=== PATIENT | female | born 1935 | race Caucasian/White ===

== ENCOUNTER 2020-07-30 18:09 | Inpatient (IN) | payer OTHER ==
[~2020-07-30] VITALS: Ht 175.3 cm; Wt 67.6 kg
--- NOTE | ~2020-07-30 | EMS ---
[facility] [address] [place] [address] EMS Patient Care Report Name: FIDELIA SANTA Room #: 170-12 ADM IN M.R.#: [id number] Admission: 07/30/20 Attend Phys: Adwoa Faust Discharge: Date of : 35 Report #: [id number] THIS REPORT FOR: //name// Report Transmitted: 07/30/2020 20:[address] [facility] Incident [id number] @ 07/30/2020 17:20 Incident [address] [place] [address] Patient FIDELIA SANTA Female, 85 Years 1935 Patient Address [address] [place] [address] Patient History None Reported, Patient Allergies Penicillin allergy,Erythromycin,Sulfa, Patient Medications None Reported, Chief Complaint Nausea and Vomiting Disposition Transported No Lights/[place] Dis[place] Reason Sick Person Transported To [facility] Narrative Dispatched to a residence on a C-1 Sick Patient. Upon arrival we find the patient sitting on the toilet in her home in care of her son. The patient reports that she has had nausea and vomiting for the last [facility] [address] [place] [address] EMS Patient Care Report Name: FIDELIA SANTA Room #: 170-12 ADM IN MDesmond.#: [id number] Admission: 07/30/20 Attend Phys: Adwoa Faust Discharge: Date of : 35 Report #: [id number] 2 days. She states that yesterday she was having diarrhea as well. The patient denies having a fever at anytime that she is aware. There has been nothing out of the ordinary with the quality or color of her diarrhea or emesis. She has no other complaints at this time. The patient denies any significant medical hx. Vitals Assessed, PMH, Physical Exam, the patient is assisted to the cot and moved to the ambulance, EKG monitoring, IV Access, NaCl Blolus, Zofran Administration. The patient's condition remains unchanged and her vital signs remain stable during transport. Initial Vitals @17:38P: 65,SpO2: 100,FL Suspected: false @17:30P: 73,R: 16,BP: 115/68,Pain: 0/10,GCS: 15,Temp: 97.8F,SpO2: 97,Revised Trauma: 12, @18:00P: 76,R: 16,BP: 125/64,GCS: 15,SpO2: 99,Revised Trauma: 12, @17:52P: 76,R: 16,BP: 150/74,GCS: 15,SpO2: 100,Revised Trauma: 12, Assessments @17:28MENTAL:Person Oriented,Time Oriented,Place Oriented,Event Oriented,SKIN:HEENT:Head/Face: No Abnormalities,Neck/Airway: No Abnormalities,LUNG SOUNDS:General: Nausea,General: Vomiting,ABDOMEN:General: Nausea,General: Vomiting,PELVIS//GI:EXTREMITIES:Left Arm: No Abnormalities,Right Arm: No Abnormalities,Left Leg: No Abnormalities,Right Leg: No Abnormalities,PULSE:NEURO:No Abnormalities, Impression Nausea Procedures @17:45Normal Saline (.9% NaCl) 400cc (22 ga) Site: Hand-LeftResponse: UnchangedSucceeded@17:47Ondansetron - 4 Milligrams (mg) - Intravenous (IV)Response: Unchanged@17:50Surgical Mask on PatientResponse: Unchanged Timeline 17:19,Call Received 17:19,Psap Call 17:20,Dispatched 17:21,En Route 17:26,On Scene 17:28,At Patient 17:30,BP: 115/68 M,PULSE: 73,RR: 16 R,SPO2: 97 Ox,ETCO2: ,BG: ,PAIN: 0,GCS: 15, 17:38,BP: / M,PULSE: 65,RR: R,SPO2: 100 Ox,ETCO2: ,BG: ,PAIN: ,GCS: , 17:45,Normal Saline (.9% NaCl) 400cc 22 ga Site: Hand-Left,Response: [facility] [address] [place] [address] EMS Patient Care Report Name: FIDELIA SANTA Room #: 170-12 ADM IN M.R.#: [id number] Admission: 07/30/20 Attend Phys: Adwoa Faust Discharge: Date of : 35 Report #: [id number] UnchangedSucceeded, 17:47,Ondansetron - 4 Milligrams (mg) - Intravenous (IV),Response: Unchanged 17:47,Depart Scene 17:50,Surgical Mask on Patient,Response: Unchanged 17:52,BP: 150/74 M,PULSE: 76,RR: 16 R,SPO2: 100 Ox,ETCO2: ,BG: ,PAIN: ,GCS: 15, 18:00,BP: 125/64 M,PULSE: 76,RR: 16 R,SPO2: 99 Ox,ETCO2: ,BG: ,PAIN: ,GCS: 15, 18:02,At Destination 18:19,Call Closed Disclaimer v1.1 Copyright 2020 [employer] This EMS Care Summary contains data elements from the applicable legal record (which may be displayed differently). It is designed to provide pertinent information for the following purposes: continuity of care, clinical quality, and state data reporting. The complete legal record is available to ED staff and administrators of the receiving hospital in [employer]'s Patient Tracker. All data is provided "as is."
[2020-07-30 18:09] VITALS: BP 150/56
[2020-07-30 18:56] LABS: ABSOLUTE NEUTROPHILS 16.1 thou/uL (1.4-8.2); BASOPHILS 0.1 % (0.0-2.0); HEMATOCRIT 45.4 % (37.0-47.0); HEMOGLOBIN 15.1 gm/dL (12.0-15.0); LYMPHOCYTES 2.7 % (24.0-44.0); MCH 30.5 pg (26.0-34.0); MCHC 33.2 g/dL (28.0-37.0); PLATELET COUNT 219 thou/uL (150-400); POLYS 95.2 % (36.0-66.0); RBC 4.93 mil/uL (4.20-5.00); RDW 13.8 % (10.5-14.5); WBC 16.9 thou/uL (4.0-11.0)
[2020-07-30 19:03] LABS: CALCIUM 9.4 mg/dL (8.5-10.1); CREATININE 1.6 mg/dL (0.6-1.0); POTASSIUM 4.3 mmol/L (3.5-5.1)
[2020-07-30 19:11] LABS: ALBUMIN 3.7 g/dL (3.4-5.0); TOTAL BILIRUBIN 0.8 mg/dL (0.2-1.0); TOTAL PROTEIN 7.1 g/dL (6.4-8.2)
[2020-07-30 20:04] LABS: URINE BILIRUBIN NEGATIVE (Negative); URINE BLOOD 3+ (Negative); URINE CLARITY CLEAR; URINE COLOR YELLOW; URINE GLUCOSE-RANDOM* NEGATIVE (Negative); URINE KETONES 1+ (Negative); URINE LEUKOCYTES-REFLEX NEGATIVE (Negative); URINE NITRITE-REFLEX NEGATIVE (Negative); URINE PROTEIN (DIPSTICK) NEGATIVE (Negative); URINE SPECIFIC GRAVITY 1.025 (1.005-1.035); URINE UROBILINOGEN 0.2 E.U./dl (0.2-1.0)
[2020-07-30 20:56] LABS: BACTERIA-REFLEX 1-9 Few /HPF (None Seen); MUCUS 0-3 Light strn/LPF (None Seen); SQUAMOUS 0-3 Few /LPF (0-3); URINE RBC 3-10 Few /HPF (0-2); URINE WBC-REFLEX 0-5 Rare /HPF (0-5)
[2020-07-30 20:57] LABS: CASTS None Seen /LPF (None Seen); CRYSTALS None Seen /LPF (None Seen)
[2020-07-30 23:20] VITALS: BP 157/67
[2020-07-30 23:30] VITALS: BP 149/74
[2020-07-31] VITALS (8 sets, daily range): BP systolic 96–145; BP diastolic 47–74
--- NOTE | 2020-07-31 00:54 | NUR ---
PT ADMITTED FROM ED. PT LIVES AT HOME ALONE. PT STATES HER SON VISITS TO WORK ON HIS CAR AND MOTORCYCLE. ED REPORT ADMITTED WITH KIDNEY STONE 6MM L KIDNEY, ABD DISCOMFORT NAUSEA, CT SHOWED DIVERTICULITUS PER ED REPORT. PT PLACED ON 2L PRN SINCE RECEIVING NARCOTICS FOR PAIN RELIEF, 02 SAT 100%. PT AOX4, INDEP WITH ADLS, STEADY GAIT. IVF INTACT. PT DENIED NAUSEA BUT DID REPORT 8 BACK PAIN AND PRN PROVIDED. BED ALARM ON.
[2020-07-31] MEDS ORDERED: CULTURELLE KID1 EAC1 PO (02:29)
[2020-07-31] MEDS ORDERED: VITAMIN C100 MG PO (02:29)
[2020-07-31] MEDS ORDERED: ADVIL200 M3 PO (02:30)
--- NOTE | 2020-07-31 03:22 | NUR ---
PROVIDER CONTACTED RE PTS CONTINUED C/O PAIN AND NAUSEA AND PRNS ALREADY PROVIDED. ALSO UPDATED RE HOW PT DOES FALL BACK ASLEEP AFTER REQUESTS.
[2020-07-31 06:13] LABS: HEMATOCRIT 43.7 % (37.0-47.0); HEMOGLOBIN 14.6 gm/dL (12.0-15.0); MCH 30.6 pg (26.0-34.0); MCHC 33.4 g/dL (28.0-37.0); MCV 91.6 fL (80.0-100.0); RBC 4.77 mil/uL (4.20-5.00)
[2020-07-31 06:28] LABS: CREATININE 2.2 mg/dL (0.6-1.0); POTASSIUM 3.6 mmol/L (3.5-5.1)
--- NOTE | 2020-07-31 09:38 | NUR ---
assessment: CM REVIEWED CHART AND SPOKE WITH PT. PT APPEARS TO BE ALERT AND ORIENTED X4. PT WAS ADMITTED DUE TO L URETAL STONE/LEUKOCYTOSIS. PT REPORTS THAT SHE IS STILL HAVING ALOT OF PAIN. PT IS ON IV FLUIDS AND PAIN CONTROL. UROLOGY IS FOLLOWING PATIENT AND POSSIBLE PLANS FOR CYSTOSCOPY AND STENT PLACEMENT TODAY. CM PROVIDED NUMBER FOR HER SON TANIYA [phone] BUT STATES SHE IS UNSURE THAT IS THE CORRECT NUMBER AND IS TRYING TO CHARGE HER PHONE TO MAKE SURE. PT REPORTS THAT SHE LIVES IN A [place] BY HERSELF. SHE REPORTS BEING VERY INDEPENDENT WITH ADLS AND AMBULATION. PT REPORTS HER SON BRINGS HER GROCERIES SINCE THE PANDEMIC OR HER NEIGHBOR OTHERWISE SHE LIKES DOING THINGS FOR HERSELF SHE STATES. PT REPORTS NO USING A CANE OR WALKER BUT DOES REPORT HAVING BOTH IF SHE EVER NEEDS THEM. PT REPORTS NO HX OF HH IN THE PAST OR SNF. CM WILL CONTINUE TO FOLLOW TO ASSIST NEEDED. CM ATTEMPTED TO REACH SON BUT NO ANSWER, VM LEFT. CM WILL CONTINUE TO FOLLOW.
--- NOTE | 2020-07-31 18:30 | NUR ---
PT ASSESSED AT START OF SHIFT. VERY PAINFUL THIS AM BEFORE SURGERY TO PLACE STENT. AFTER SHE RETURNED TO THE UNIT AND FULLY AWAKENED SHE STATED SHE FELT LIKE SHE COULD RUN AROUND THE ROOM. DRINKING WATER AND EATING WELL W/ PUREED DIET PER REQUEST SHE HAS NO TEETH. URINE SLIGHTLY CLOUDY. DENIED NEED FOR PAIN MED. AMBULATED W/ THERAPY AFTER SURGERY AND DID WELL.
--- NOTE | 2020-08-01 04:03 | NUR ---
RECEIVED CARE OF THIS PATIENT AT 1900. PATIENT ALERT AND ORIENTED X4. HAS IV IN LH WITH FLUIDS INFUSING. DENIES PAIN. SLEPT OFF AND ON DURING THIS SHIFT.
[2020-08-01 05:22] LABS: ABSOLUTE NEUTROPHILS 13.3 thou/uL (1.4-8.2); BASOPHILS 0.1 % (0.0-2.0); EOSINOPHILS 0.1 % (0.0-3.0); HEMATOCRIT 37.2 % (37.0-47.0); LYMPHOCYTES 7.8 % (24.0-44.0); MCH 30.3 pg (26.0-34.0); MCV 91.8 fL (80.0-100.0); MONOCYTES 6.8 % (1.0-8.0); PLATELET COUNT 159 thou/uL (150-400); POLYS 85.2 % (36.0-66.0); RBC 4.05 mil/uL (4.20-5.00); WBC 15.6 thou/uL (4.0-11.0)
[2020-08-01 05:37] LABS: CALCIUM 8.4 mg/dL (8.5-10.1); CREATININE 1.5 mg/dL (0.6-1.0); POTASSIUM 4.1 mmol/L (3.5-5.1)
[2020-08-01 05:59] LABS: HEMOGLOBIN 12.3 gm/dL (12.0-15.0)
[2020-08-01 07:40] VITALS: BP 125/70
--- NOTE | 2020-08-01 11:31 | NUR ---
ON-GOING ASSESSMENT: CM REVIEWED CHART AND SPOKE WITH ATTENDING. PT CONTINUES TO PROGRESS TOWARDS DISCHARGE GOALS. PT REMAINS ON IV ANBX AND AWAITING BLOOD CULTURES. PLANS ARE TO LIKELY DISCHARGE HOME SOON. PT IS DOING WELL WITH THERAPY AND SHOULD HAVE NO NEEDS AT THE TIME OF DISCHARGE. CM WILL CONTINUE TO FOLLOW TO ASSIST NEEDED.
[2020-08-01 12:50] LABS: URINE BILIRUBIN NEGATIVE (Negative); URINE BLOOD 3+ (Negative); URINE CLARITY CLOUDY; URINE COLOR YELLOW; URINE GLUCOSE-RANDOM* NEGATIVE (Negative); URINE KETONES NEGATIVE (Negative); URINE NITRITE-REFLEX NEGATIVE (Negative); URINE PROTEIN (DIPSTICK) 2+ (Negative); URINE SPECIFIC GRAVITY 1.025 (1.005-1.035); URINE UROBILINOGEN 0.2 E.U./dl (0.2-1.0)
[2020-08-01 12:54] LABS: URINE LEUKOCYTES-REFLEX 1+ (Negative)
[2020-08-01 13:21] LABS: URINE WBC-REFLEX 6-15 Few /HPF (0-5)
[2020-08-01 13:22] LABS: BACTERIA-REFLEX 1-9 Few /HPF (None Seen); CASTS None Seen /LPF (None Seen); SQUAMOUS 4-10 Moderate /LPF (0-3); URIC ACID CRYSTALS 4-10 Moderate /LPF (None Seen); URINE RBC >20 Many /HPF (0-2)
--- NOTE | 2020-08-01 14:20 | NUR ---
Received awake on bed. Due medications given as prescribed, able to swallow med w/o difficulty. On room air. Vital signs stable. On MS, not on telemetry; no complains and signs of chest pain, crushing sensation and heaviness. On pureed diet- tolerating well; no nausea, no vomiting and no abdominal pain noted. With melendez in place- draining well; output measured and recorded accordingly; night RN reported that urine specimen needs to be collected; specimen obtained and sent to lab. With SL at L AC and D51/2NS at 100cc/hr- infusing well at L hand. Falls bundle in place. Assisted in ADLs. Complained of pain, due PRN pain meds given as prescribed. Patient seen and examined by Urology SECURITY REPRESENTATIVE- anna remove melendez- removed w/o difficulty; to monitor for urine post removal. Patient seen and examined by physical therapist- able to sit out on the chair. To continue monitoring patient.
[2020-08-01 15:15] VITALS: BP 141/74
[2020-08-01 19:35] VITALS: BP 124/65
--- NOTE | 2020-08-02 01:59 | NUR ---
ASSESSED AT START OF SHIFT 1900. PT A&OX4 DENIES PAIN ON ASSESSEMENT. IV INTACT AND FLUIDS INFUSING. UP WITH SBA TO THE BSC. FALL PREC IN PLACE. ON PUREED DIET DUE TO TEETH ANNMARIE PO WELL. PT SLEPT WELL THIS SHIFT WILL CONT TO MONITOR.
[2020-08-02 03:29] VITALS: BP 115/76
[2020-08-02 08:03] VITALS: BP 131/69
[2020-08-02 09:43] LABS: HEMOGLOBIN 12.5 gm/dL (12.0-15.0); MCH 30.8 pg (26.0-34.0); MCHC 33.7 g/dL (28.0-37.0); MCV 91.5 fL (80.0-100.0); RBC 4.05 mil/uL (4.20-5.00)
[2020-08-02 09:49] LABS: CALCIUM 8.7 mg/dL (8.5-10.1); CREATININE 1.2 mg/dL (0.6-1.0); POTASSIUM 3.4 mmol/L (3.5-5.1)
[2020-08-02] MEDS ORDERED: ACETAMINOPHEN325 M1 PO (12:36)
[2020-08-02] MEDS ORDERED: FLOMAX0.4 MG PO (12:36)
--- NOTE | 2020-08-02 12:46 | NUR ---
ON-GOING ASSESSMENT: CM REVIEWED CHART. PT IS DOING WELL AND PRGORESSING TOWARDS DISCHARGE GOALS. PT IS POSSIBLE DISCHARGE HOME TODAY PENDING CLEARANCE FROM ID AND THEIR RECOMMENDATIONS. IF PATIENT IS ABLE TO DISCHARGE HOME TODAY SHE HAS NO NEEDS FROM CM AT THIS TIME. PT DID WELL WITH THERAPIES AND AMBULATED WITHOUT DEVICE. CM WILL CONTINUE TO FOLLOW TO ASSIST NEEDED.
[2020-08-02] MEDS ORDERED: CEFDINIR300 MG PO (15:07)
[2020-08-02 15:34] VITALS: BP 131/69
--- NOTE | 2020-08-02 17:29 | NUR ---
PT ALERT AND ORIENTED X4. REPORTS MINIMAL ABD PAIN. DR TROY HERE THIS AFTERNOON AND DISCHARGE INSTRUCTIONS RECIEVED TO DISCHARGE IF OK WITH DR LEMONS. DR LEMONS HERE AND OK WITH DISCHARGE. DR TROY UPDATED. PT'S SON HERE FOR DISCHARGE HOME BY PRIVATE CAR. IV DISCONTINUED PRIOR TO DISCHARGE. BELONGINGS SENT HOME WITH PT.
== END 2020-08-02 17:15 | disposition home or self-care (01) | DRG 853 ==
LOC: ER 18:09 → EROBS 20:48 → 4S 20:48
PROVIDERS: Nurse Practitioner Family; Physician Assistant; Specialist; Urology; ADMIT Hospitalist; ATTEND Hospitalist
PROC: 0T778DZ Dilation of Left Ureter with Intraluminal Device, Via Natural or Artificial Opening Endoscopic (ICD-10-PCS; principal; 2020-07-31)
DX: A41.9 Sepsis, unspecified organism (principal); N17.0 Acute kidney failure with tubular necrosis; N13.6 Pyonephrosis; E87.2 Acidosis; E87.0 Hyperosmolality and hypernatremia; R65.10 Systemic inflammatory response syndrome (SIRS) of non-infectious origin without acute organ dysfunction; Z60.2 Problems related to living alone; R53.81 Other malaise; E87.6 Hypokalemia; Z20.822 Contact with and (suspected) exposure to COVID-19; N18.2 Chronic kidney disease, stage 2 (mild); Z79.899 Other long term (current) drug therapy; Z88.1 Allergy status to other antibiotic agents; Z88.0 Allergy status to penicillin; Z88.2 Allergy status to sulfonamides; Z87.442 Personal history of urinary calculi
CPT/HCPCS: 10195; 50010; 50101; 50478; 51767; 56815; 58565; 62110; 62900